=== PATIENT | male | born 1980 | race Two or more races ===

== ENCOUNTER 2017-11-17 06:10 | Emergency (ER) | payer OTHER ==
[~2017-11-17] VITALS: Ht 190.5 cm; Wt 86.2 kg
[~2017-11-17 06:10] MED LIST: ADVAIR 2501 DISK W/1 IH; ATACAND16 MG PO; DERMOTIC20 ML OTIC; FLONASE16 G1 NS; MUCINEX600 MG PO; TUSSIONEX PENNKI5 ML PO
== END 2017-11-17 13:56 | disposition home or self-care (01) ==
LOC: ER 06:10
DX: K29.70 Gastritis, unspecified, without bleeding (principal)

== ENCOUNTER 2018-04-22 07:19 | Outpatient (CLI) | payer OTHER | END 2018-04-22 09:05 | disposition home or self-care (01) | LOC: LAB 07:19 | DX: F41.8 Other specified anxiety disorders (principal); F29 Unspecified psychosis not due to a substance or known physiological condition ==

== ENCOUNTER 2020-09-01 07:10 | Emergency (ER) | payer OTHER ==
[~2020-09-01] VITALS: Ht 190.5 cm; Wt 97.5 kg
== END 2020-09-01 10:22 | disposition home or self-care (01) ==
LOC: ER 07:10
DX: B34.9 Viral infection, unspecified (principal); Z11.52 Encounter for screening for COVID-19

== ENCOUNTER → 2021-04-27 | Outpatient (CLI) | payer OTHER ==
[~2021-04-27] MED LIST changes: +CANDESARTAN CILE8 MG PO
== END | disposition home or self-care (01) ==
LOC: SONOGRAMA 07:09
DX: K29.70 Gastritis, unspecified, without bleeding (principal)

== ENCOUNTER 2021-05-10 15:24 | Emergency (ER) | payer OTHER ==
[~2021-05-10] VITALS: Ht 190.5 cm; Wt 98.4 kg
[~2021-05-10 15:24] MED LIST changes: -CANDESARTAN CILE8 MG PO
[2021-05-10] MEDS ORDERED: CANDESARTAN CILE8 MG PO (15:33)
== END 2021-05-10 18:13 | disposition home or self-care (01) ==
LOC: ER 15:24
DX: J18.9 Pneumonia, unspecified organism (principal)

== ENCOUNTER 2021-05-30 17:13 | Emergency (ER) | payer OTHER ==
[~2021-05-30] VITALS: Ht 185.4 cm; Wt 86.2 kg
[~2021-05-30 17:13] MED LIST changes: +CANDESARTAN CILE8 MG PO
[2021-05-30] MEDS ORDERED: FLUTICASONE-SA1 EAC5 (17:36)
[2021-05-30] MEDS ORDERED: CLONAZEPAM0.5 MG PO (22:17)
== END 2021-05-30 22:31 ==
LOC: ER 17:13
DX: R07.89 Other chest pain (principal); R00.0 Tachycardia, unspecified; F41.9 Anxiety disorder, unspecified; I10 Essential (primary) hypertension; Z20.822 Contact with and (suspected) exposure to COVID-19

== ENCOUNTER 2021-07-22 21:46 | Emergency (ER) | payer OTHER ==
[~2021-07-22] VITALS: Ht 190.5 cm; Wt 99.8 kg
[~2021-07-22 21:46] MED LIST changes: +CLONAZEPAM0.5 MG PO; +FLUTICASONE-SA1 EAC5
[2021-07-23] MEDS ORDERED: METRONIDAZOLE500 MG PO (00:38)
[2021-07-23] MEDS ORDERED: PEPCID AC20 MG PO (00:38)
[2021-07-23] MEDS ORDERED: CIPRO500 MG PO (00:38)
== END 2021-07-23 02:44 | disposition left against medical advice (07) ==
LOC: ER 21:46
DX: K52.9 Noninfective gastroenteritis and colitis, unspecified (principal); I10 Essential (primary) hypertension; Z20.822 Contact with and (suspected) exposure to COVID-19

== ENCOUNTER 2021-12-03 07:11 | Outpatient (CLI) | payer OTHER ==
[~2021-12-03 07:11] MED LIST changes: +CIPRO500 MG PO; +METRONIDAZOLE500 MG PO; +PEPCID AC20 MG PO
== END 2021-12-03 07:26 | disposition home or self-care (01) ==
LOC: SONOGRAMA 07:11
DX: K82.4 Cholesterolosis of gallbladder (principal)

== ENCOUNTER 2022-01-07 04:50 | Day surgery (SDC) | payer OTHER ==
[~2022-01-07 04:50] MED LIST changes: +ABILIFY2 MG PO; +PROTONIX20 MG PO
[2022-01-07] MEDS ORDERED: PEPCID AC20 MG PO (09:06)
[2022-01-07] MEDS ORDERED: PROTONIX40 MG PO (09:07)
[2022-01-07] MEDS ORDERED: PERCOCET 5-3251 EACH PO (09:08)
[2022-01-07] MEDS ORDERED: DICLOFENAC SODI75 MG PO (09:10)
[2022-01-07] MEDS ORDERED: ZOFRAN8 MG PO (09:13)
== END 2022-01-07 11:00 | disposition home or self-care (01) ==
LOC: CIR.AMB 04:50
PROVIDERS: ATTEND Surgery
DX: K81.1 Chronic cholecystitis (principal); Z20.822 Contact with and (suspected) exposure to COVID-19; I10 Essential (primary) hypertension; G43.909 Migraine, unspecified, not intractable, without status migrainosus; K21.9 Gastro-esophageal reflux disease without esophagitis

== ENCOUNTER 2023-03-03 10:18 | Emergency (ER) | payer OTHER ==
[~2023-03-03] VITALS: Ht 190.5 cm; Wt 102.1 kg
[~2023-03-03 10:18] MED LIST changes: +DICLOFENAC SODI75 MG PO; +PERCOCET 5-3251 EACH PO; +PROTONIX40 MG PO; +ZOFRAN8 MG PO
[2023-03-03] MEDS ORDERED: SYMBICORT 16010.2 GM IH (10:48)
[2023-03-03] MEDS ORDERED: SPIRIVA RESPIMAT4 G1 IH (10:48)
[2023-03-03 12:28] LABS: HEMATOCRIT 42.9 % (39.0-48.0); HEMOGLOBIN 14.7 g/dL (13-16.00); MEAN CELL VOLUME 82.6 fL (80.0-100.00); MEAN CORPUSCULAR HEMOGLOBIN 28.4 pg (27.00-32.0); MEAN CORPUSCULAR HGB CONC 34.4 g/dl (32.0-36.0); PLATELET COUNT 240 K/uL (150-450); RED BLOOD COUNT 5.19 M/uL (4.00-6.00); RED CELL DISTRIBUTION WIDTH 13.3 % (11.5-14.5)
[2023-03-03] MEDS ORDERED: MEDROLPACK PO (13:45)
[2023-03-03] MEDS ORDERED: TUSNEL LIQUID178 ML PO (13:45)
[2023-03-03] MEDS ORDERED: XOPENEX CO1.25 MG/0. IH (13:45)
== END 2023-03-03 14:11 | disposition home or self-care (01) ==
LOC: ER 10:18
PROVIDERS: General Practice
DX: J45.909 Unspecified asthma, uncomplicated (principal); R05.9 Cough, unspecified; Z20.822 Contact with and (suspected) exposure to COVID-19

== ENCOUNTER → 2025-02-24 | Emergency (ER) | payer OTHER ==
[~2025-02-24] VITALS: Ht 190.5 cm; Wt 104.3 kg
[~2025-02-24] MED LIST changes: +ATACAND4 MG; +MEDROLPACK PO; +SPIRIVA RESPIMAT4 G1 IH; +SYMBICORT 16010.2 GM IH; +TUSNEL LIQUID178 ML PO; +XOPENEX CO1.25 MG/0. IH
[2025-02-24 10:11] LABS: BASO % 0.5 % (0.1-1.2); EOS # 0.13 (0.04-0.54); EOS % 2.1 % (0.7-7.0); LYMPH # 1.87 (1.18-3.74); LYMPH % 30.3 % (19.3-53.1); MEAN PLATELET VOLUME 11.10 fl (9.4-12.4); MONO # 0.63 (0.24-0.82); MONO % 10.2 % (4.7-12.5); NEUT # 3.49 (1.56-6.13); NEUT % 56.6 % (34.0-71.1); RED CELL DISTRIBUTION WIDTH 12.3 % (11.6-14.4)
[2025-02-24 10:42] LABS: COVID-19 AG NEGATIVE (NEGATIVE)
== END | disposition home or self-care (01) ==
LOC: ER 06:47
PROVIDERS: General Practice
DX: B34.9 Viral infection, unspecified (principal); R21 Rash and other nonspecific skin eruption; Z20.822 Contact with and (suspected) exposure to COVID-19